=== PATIENT | female | born 1935 | race Caucasian/White ===

== ENCOUNTER 2018-07-05 08:46 | Outpatient (CLI) | payer MEDICARE, BC ==
[2018-07-05] VITALS (9 sets, daily range): BP systolic 146–205; BP diastolic 80–110; PULSE 20–81; TEMP 98
[~2018-07-05] VITALS: Ht 167.6 cm; Wt 75.0 kg
[~2018-07-05 08:46] MED LIST: ADVIL200 MG PO; AMBIEN 10MG10 MG PO; CALCIUM 600-D 61 TAB PO; CALCIUM 6001 TA1 PO; CALTRATE 600 +1 TAB PO; CHLORASEPTIC 1180 M3 MM; CHLORASEPTIC MM; CLARITIN 1010 MG/TAB PO; CO Q-1010 M1 PO; DIPROSONE0.05% TP; DROPERIDOL IJ; DULCOLAX S10 MG/SUPP RC; FOLIC ACID 40400 MCG PO; GLUCOSAMINE & C1 CA1 PO; MILK OF MAGNESI30 M1 PO; NORCO 325 MG-51 TAB PO; OXYCONTIN 10MG10 MG PO; ROXICODONE 55 MG/TAB PO; SARNA ANTI-ITC222 ML TP; SENOKOT S 50 MG1 TAB PO; THERAGRAN1 TA1 PO; TORADOL IV; TYLENOL 325MG325 MG PO; VITAMIN B-6100 MG PO; VITAMIN B610 MG PO; XARELTO10 MG PO; ZOFRAN 4MG T4 MG/TAB PO
[2018-07-05] MEDS ORDERED: LUTEIN6 MG PO (09:13)
[2018-07-05] MEDS ORDERED: FLAXSEED OIL1000 MG PO (09:14)
[2018-07-05] MEDS ORDERED: ADVIL200 MG PO (09:16)
--- NOTE | 2018-07-05 11:43 | NUR ---
ALL SEDATION MEDICATIONS WILL BE GIVEN DURING PROCEDURE WITH VERBAL ORDER FROM MD SINGH. SEE MERGE FOR ADMIN TIMES. SEE MERGE FOR RASS/MODERATE SEDATION ASSESSMENTS DURING AND POST PROCEDURE.
--- NOTE | 2018-07-05 14:30 | NUR ---
Discharge instructions reviewed with pt/family. Pt/family voice understanding. Pt rating her pain level a 4/10 at this time, prior to the procedure pt stated her pain level was 10/10 in the low back and lower abdominal area. Pt voided with no complications. Pt tolerated intake with no N/V. Dr. Monae in to see pt.
== END 2018-07-05 14:53 | disposition home or self-care (01) ==
LOC: COL.CAR 08:46
DX: S32.018A Other fracture of first lumbar vertebra, initial encounter for closed fracture (principal); Z90.710 Acquired absence of both cervix and uterus; Z96.649 Presence of unspecified artificial hip joint; Z88.5 Allergy status to narcotic agent; Z88.8 Allergy status to other drugs, medicaments and biological substances
CPT/HCPCS: J2250; J3010; J7120

== ENCOUNTER 2018-09-16 07:46 | Outpatient (CLI) | payer MEDICARE, BC ==
[2018-09-16] VITALS (7 sets, daily range): BP systolic 149–182; BP diastolic 78–94; PULSE 65–88; TEMP 98
[~2018-09-16] VITALS: Ht 167.6 cm; Wt 73.2 kg
[~2018-09-16 07:46] MED LIST changes: +FLAXSEED OIL1000 MG PO; +LUTEIN6 MG PO
[2018-09-16] MEDS ORDERED: CYMBALTA 30MG30 MG PO (08:36)
[2018-09-16] MEDS ORDERED: VOLTAREN GEL 1%1 TU TP (08:38)
--- NOTE | 2018-09-16 10:04 | NUR ---
PLEASE SEE MERGE FOR MEDICATION ADMINISTRATION TIMES, SEDATION ASSESSMENT DATA INTRA\POST PROCEDURE
--- NOTE | 2018-09-16 10:55 | NUR ---
Back from [employer]. Bandaid to lower back CD&I as seen by Zhane PRECIADO. VSS. Daughter bedside
--- NOTE | 2018-09-16 12:55 | NUR ---
Ambulated to bathroom with steady gait and no c/o pain. Dr. Monae in to see pt.
--- NOTE | 2018-09-16 13:10 | NUR ---
Discontinued INT intact. Discharge instructions given. Transported pt to private car by faviola
== END 2018-09-16 13:18 | disposition home or self-care (01) ==
LOC: COL.CAR 07:46
DX: S22.080A Wedge compression fracture of T11-T12 vertebra, initial encounter for closed fracture (principal); Z90.710 Acquired absence of both cervix and uterus; Z96.649 Presence of unspecified artificial hip joint; Z88.5 Allergy status to narcotic agent; Z88.6 Allergy status to analgesic agent
CPT/HCPCS: C1713; J2250; J3010; J7120

== ENCOUNTER 2023-07-13 17:32 | Emergency (ER) | payer MEDICARE, BC ==
[~2023-07-13] VITALS: Ht 157.5 cm; Wt 68.2 kg
[~2023-07-13 17:32] MED LIST changes: +CYMBALTA 30MG30 MG PO; +HCTZ 25MG TAB25 MG PO; +TYLENOL 500MG500 MG PO; +VOLTAREN GEL 1%1 TU TP; +ZESTRIL 10MG10 MG PO
[2023-07-13 17:35] VITALS: TEMP 97.7
[2023-07-13] MEDS ORDERED: Iohexol 300 - 100 ML VIAL IV ONE (18:49)
[2023-07-13] MEDS ORDERED: NS 50 ML IV ONE (18:50)
[2023-07-13] MEDS ORDERED: NORCO 325 MG-51 TAB PO (19:57)
[2023-07-13] MEDS ORDERED: Home HYDROcodone/Acetaminophen 5/325 MG #4 TABS/PACK PO ONE (20:00)
[2023-07-13 20:11] VITALS: BP 179/88; PULSE 84
== END 2023-07-13 20:14 | disposition home or self-care (01) ==
LOC: COL.ER 17:32
DX: R07.81 Pleurodynia (principal); R10.12 Left upper quadrant pain; M54.6 Pain in thoracic spine; Z88.5 Allergy status to narcotic agent
CPT/HCPCS: Q9967